=== PATIENT | female | born 1980 | race Caucasian/White ===

== ENCOUNTER 2024-01-03 19:55 | Emergency (ER) | payer OTHER ==
[~2024-01-03] VITALS: Ht 177.8 cm; Wt 103.1 kg
[~2024-01-03 19:55] MED LIST: LEVOTHYROXINE112 MC1 PO; ROSUVASTATIN CA40 MG PO
--- OUTSIDE RECORDS SUMMARY | 2024-01-03 20:02 | XMS ---
PreManage Notification: CHOLO PARMAR Security [employer] Events No recent Security Events currently on file CRITERIA MET - [facility] - 2 Visits in 30 Days CARE PROVIDERS -, [facility] Dentist: Cuff Presser [facility] PHONE: [phone] -[place]- Dentist: Cuff Presser [facility] PHONE: [phone] LADARIUS PAULA [facility] Current PHONE: Unknown Riley has no Care Guidelines for this patient. E.DLucie VISIT COUNT (12 MO.) 2 ANA PAULA [place] TOTAL 2 NOTE: Visits indicate total known visits. ED/UCC VISIT TRACKING (12 MO.) 01/03/2024 19:55 ANA PAULA Min OR TYPE: Emergency COMPLAINT: - RAPID HEAT RATE, SOB 12/16/2023 09:00 ANA PAULA Min OR TYPE: Emergency COMPLAINT: - HEART RATE ISSUES DIAGNOSES: - Hormone replacement therapy - Hypothyroidism, unspecified - Other senior care (current) drug therapy - Palpitations INPATIENT VISIT TRACKING (12 MO.) No inpatient visits to display in this time frame [email or web address]
[2024-01-03 22:49] LABS: BASOPHILS 0.3 % (0-2); EOSINOPHILS 1.8 % (0-6); HEMATOCRIT 39.8 % (35.0-50.0); HEMOGLOBIN 13.1 g/dL (12.0-18.0); LYMPHOCYTES 13.7 % (24-44); MCH 28.2 (27-36); MCV 85.6 fl (81-99); MONOCYTES 5.5 % (0-12); NEUTROPHILS 78.7 % (39-80); PLATELET COUNT 232 K/uL (140-440); RBC 4.65 M/ul (4.3-5.7); RDW 14.4 (10.5-15.0)
[2024-01-03 23:14] LABS: ALBUMIN/GLOBULIN RATIO 1.14 (1.1-2.4); ALKALINE PHOSPHATASE 49 U/L (46-116); ALT (SGPT) 30 U/L (14-59); ANION GAP 13.6 (7-21); AST (SGOT) 16 U/L (15-37); BILIRUBIN, TOTAL 0.4 ng/dL (0.2-1.0); BUN/CREATININE RATIO 13.04 (6.0-28.6); CARBON DIOXIDE 27 mmol/L (21-32); CHLORIDE 101 mmol/L (98-107); CREATININE, SERUM 1.15 mg/dL (0.55-1.02); GLOMERULAR FILTRATION RATE,EST 61 mL/min (>60); POTASSIUM 3.6 mmol/L (3.5-5.1); PROTEIN, TOTAL 7.5 g/dL (6.4-8.2); UREA NITROGEN 15 mg/dL (7-18)
[2024-01-03 23:30] LABS: AMPHETAMINES, URINE NEGATIVE (NEGATIVE); BARBITURATES, URINE NEGATIVE (NEGATIVE); BENZODIAZEPINE, URINE NEGATIVE (NEGATIVE); BUPRENORPHINE, URINE NEGATIVE (NEGATIVE); CANNABINOID, URINE NEGATIVE (NEGATIVE); COCAINE, URINE NEGATIVE (NEGATIVE); ECSTASY, URINE NEGATIVE (NEGATIVE); FENTANYL, URINE NEGATIVE (NEGATIVE); METHADONE, URINE NEGATIVE (NEGATIVE); OPIATES, URINE NEGATIVE (NEGATIVE); OXYCODONE, URINE NEGATIVE (NEGATIVE); PHENCYCLIDINE, URINE NEGATIVE (NEGATIVE)
[2024-01-04] MEDS ORDERED: LACTATED RINGER'S 1,000 ML IV ONE (00:15)
[2024-01-04 00:58] LABS: MAGNESIUM 2.1 mg/dL (1.8-2.4)
[2024-01-04 01:25] VITALS: BP 131/74
--- NOTE | 2024-01-04 14:07 | EKG ---
[facility] [address] [facility] [place] [address] Signed Normal sinus rhythm Nonspecific T wave abnormality Abnormal ECG When compared with ECG of 16-DEC-2023 09:06, Nonspecific T wave abnormality no longer evident in Inferior leads QT has lengthened Confirmed by Lana Ramirez ([id number]) on 01/04/2024 2:06:58 PM Electronically Signed By: LANA RAMIREZ MD 01/04/24 1407 PATIENT NAME: CHOLO PARMAR Electrocardiogram DATE OF : 80 PHYSICIAN: LANA RAMIREZ MD REPORT #: [id number] REPORT IS CONFIDENTIAL AND NOT TO BE RELEASED WITHOUT AUTHORIZATION
[2024-01-05 15:47] LABS: THYROXINE 7.2 ug/dL (4.50-11.70)
== END 2024-01-04 01:25 | disposition home or self-care (01) ==
LOC: ED 19:55
PROVIDERS: Family Medicine
DX: R00.2 Palpitations (principal); E03.9 Hypothyroidism, unspecified; Z79.899 Other long term (current) drug therapy
CPT/HCPCS: 36415; 80053; 80307; 83735; 84436; 84443; 84484; 84703; 85025; 93005; 93010; 99285-25; J7121

== ENCOUNTER 2024-06-12 11:26 | Emergency (ER) | payer OTHER ==
[~2024-06-12] VITALS: Ht 177.8 cm; Wt 104.5 kg
[2024-06-12] MEDS ORDERED: KETOROLAC TROMETHAMINE 30 MG/ML VIAL IV ONE (11:45)
[2024-06-12] MEDS ORDERED: ondansetron HCL 4 MG/2 ML VIAL IV ONE (11:45)
[2024-06-12] MEDS ORDERED: SODIUM CHLORIDE 0.9% 1,000 ML IV ONE (11:45)
[2024-06-12 11:56] LABS: BASOPHILS 0.5 % (0-2); EOSINOPHILS 2.5 % (0-6); HEMATOCRIT 43.5 % (35.0-50.0); LYMPHOCYTES 19.2 % (24-44); MCH 30.2 (27-36); MCHC 34.4 g/dl (30-36); MCV 87.7 fl (81-99); MONOCYTES 5.5 % (0-12); NEUTROPHILS 72.3 % (39-80); PLATELET COUNT 228 K/uL (140-440); RBC 4.96 M/ul (4.3-5.7); RDW 13.9 (10.5-15.0)
[2024-06-12 12:10] LABS: ALBUMIN 4.3 g/dL (3.4-5.0); ALBUMIN/GLOBULIN RATIO 1.13 (1.1-2.4); ANION GAP 12.8 (7-21); BILIRUBIN, TOTAL 0.6 ng/dL (0.2-1.0); BUN/CREATININE RATIO 12.38 (6.0-28.6); CALCIUM 9.7 mg/dL (8.5-10.1); CREATININE, SERUM 1.05 mg/dL (0.55-1.02); POTASSIUM 3.8 mmol/L (3.5-5.1); PROTEIN, TOTAL 8.1 g/dL (6.4-8.2)
[2024-06-12] MEDS ORDERED: ONDANSETRON ODT8 MG PO (12:45)
[2024-06-12 12:50] VITALS: BP 106/67
== END 2024-06-12 12:50 | disposition home or self-care (01) ==
LOC: ED 11:26
PROVIDERS: Emergency Medicine
DX: R10.11 Right upper quadrant pain (principal); K76.0 Fatty (change of) liver, not elsewhere classified; E03.9 Hypothyroidism, unspecified; Z79.890 Hormone replacement therapy
CPT/HCPCS: 36415; 76705; 80053; 83690; 84703; 85025; 96374; 96375; 99284-25; J1885; J2405; J7030

== ENCOUNTER 2024-12-12 23:06 | Emergency (ER) | payer OTHER ==
[~2024-12-12] VITALS: Ht 177.8 cm; Wt 108.0 kg
[~2024-12-12 23:06] MED LIST changes: +ONDANSETRON ODT8 MG PO
[2024-12-12 23:36] LABS: BASOPHILS 0.4 % (0-2); EOSINOPHILS 2.4 % (0-6); HEMATOCRIT 43.1 % (35.0-50.0); LYMPHOCYTES 27.7 % (24-44); MCH 29.1 (27-36); MCHC 34.8 g/dl (30-36); MCV 83.7 fl (81-99); MONOCYTES 6.4 % (0-12); NEUTROPHILS 63.1 % (39-80); PLATELET COUNT 242 K/uL (140-440); RBC 5.15 M/ul (4.3-5.7); RDW 13.5 (10.5-15.0)
[2024-12-12 23:55] LABS: ALBUMIN/GLOBULIN RATIO 1.11 (1.1-2.4); ANION GAP 13.3 (7-21); BILIRUBIN, TOTAL 0.3 mg/dL (0.2-1.0); BUN/CREATININE RATIO 15.78 (6.0-28.6); CALCIUM 9.6 mg/dL (8.5-10.1); CREATININE, SERUM 0.95 mg/dL (0.55-1.02); MAGNESIUM 1.6 mg/dL (1.8-2.4); POTASSIUM 3.3 mmol/L (3.5-5.1); PROTEIN, TOTAL 7.6 g/dL (6.4-8.2); TSH, 3RD GENERATION 0.518 uIU/mL (0.358-3.740)
[2024-12-13] MEDS ORDERED: MAGNESIUM SULFATE 2 GM/50 ML BAG IV ONE (00:15)
[2024-12-13 01:31] VITALS: BP 128/84
--- NOTE | 2024-12-14 07:26 | EKG ---
[facility] [address] [facility] [address] [place], [place] [address] Signed Normal sinus rhythm Nonspecific ST and T wave abnormality Abnormal ECG When compared with ECG of 03-JAN-2024 22:49, Nonspecific T wave abnormality now evident in Inferior leads QT has shortened Confirmed by Iris Tejeda MD ([id number]) on 12/14/2024 7:26:40 AM Electronically Signed By: IRIS TEEJDA MD 12/14/24 0726 PATIENT NAME: CHOLO PARMAR Electrocardiogram DATE OF : 80 PHYSICIAN: IRIS TEJEDA MD REPORT #: [id number] REPORT IS CONFIDENTIAL AND NOT TO BE RELEASED WITHOUT AUTHORIZATION
== END 2024-12-13 01:32 | disposition home or self-care (01) ==
LOC: ED 23:06
PROVIDERS: Family Medicine
DX: R00.2 Palpitations (principal); E83.42 Hypomagnesemia
CPT/HCPCS: 36415; 71045; 80053; 83735; 84443; 84484; 84703; 85025; 85379; 93005; 93010; 93242; 93244; 96365; 99285-25; J3475